=== PATIENT | female | born 1960 | race Caucasian/White ===

== ENCOUNTER 2018-08-17 13:25 | Inpatient (IN) | payer BC ==
[~2018-08-17] VITALS: Ht 162.6 cm; Wt 84.0 kg
--- NOTE | 2018-08-17 13:58 | NUR ---
PT FROM [place], HERE FOR [facility] [place] TREATMENT WITH DR. TOVAR. PT WAS AT HER APPT AND THE STAFF FOUND HER TO BE 82% ON RA AND 88% AFTER 5L OF O2. [facility] WAS CALLED, PT BROUGHT IN ON 15L NRB AND WITH AN OX SAT OF 94%. PT HAS A R CHEST PORT AND A DOUBLE LUMEN PICC IN [facility]. PT IS WEARING A 100 MCG FENTYNAL PATCH THAT SHE CAME IN WITH. PT APPEARS VERY FRAILE AND WEAK. PT GETS SOB FROM TALKING AND HAS TO TAKE A BREATH BETWEEN WORDS. FAMILY AT BEDSIDE. VS CURRENTLY STABLE. U/S AT BEDSIDE. ROUNDED AND DISCUSSED POC WITH FT AND FAMILY.
[2018-08-17] MEDS ORDERED: SODIUM CHLORIDE FLUSH 10ML SYR IVF ONE (14:00)
--- NOTE | 2018-08-17 14:08 | NUR ---
CALL LIGHT IN REACH. FAMILY EDUCATED ABOUT HOW TO USE THE STAFF EMERGENCY BUTTON.
[2018-08-17 14:16] LABS: MEAN CORPUSCULAR HEMOGLOBIN 28.8 pg (27.0-34.8); MEAN CORPUSCULAR HGB CONC 32.1 g/dL (32.4-35.8); MEAN CORPUSCULAR VOLUME 89.7 fL (80-100); MEAN PLATELET VOLUME 8.1 fL (7.4-10.4); PLATELET COUNT 131 x10^3/uL (130-400); RED BLOOD COUNT 3.66 x10^6/uL (3.82-5.3); RED CELL DISTRIBUTION WIDTH 17.3 % (9.6-15.2)
[2018-08-17 14:27] LABS: ALANINE AMINOTRANSFERASE 31 U/L (12-78); ALBUMIN 1.9 g/dL (3.4-5.0); ANION GAP 6 mmol/L (5-15); CALCIUM 9.2 mg/dL (8.5-10.1); CHLORIDE 117 mmol/L (98-107)
--- NOTE | 2018-08-17 14:27 | NUR ---
PT REPORTS PAIN. WILL NOTIFY MD. PT ON SERIAL VS.
[2018-08-17 14:31] LABS: ALKALINE PHOSPHATASE 164 U/L (45-117); BILIRUBIN,TOTAL 1.1 mg/dL (0.2-1.0); CREATININE 0.82 mg/dL (0.55-1.02); TOTAL PROTEIN 6.2 g/dL (6.4-8.2); TROPONIN I < 0.015 ng/mL (0.000-0.045)
[2018-08-17] MEDS ORDERED: ONDANSETRON 2MG/ML, 2ML ONE (14:37)
[2018-08-17] MEDS ORDERED: HYDROmorphone 1 MG/ML, 1ML VIAL ONE ×2 (14:37→17:12)
[2018-08-17] MEDS ORDERED: HYDROmorphone 1 MG/ML, 1ML INJ IV ONE (15:00)
[2018-08-17] MEDS ORDERED: ONDANSETRON 2MG/ML, 2ML IVPush ONE (15:00)
[2018-08-17] MEDS ORDERED: PLEASE ENTER ALLERGIES MC SCH (15:00)
[2018-08-17] MEDS ORDERED: HYDROmorphone 2 MG/ML, 1ML IV ONE (15:00)
[2018-08-17 15:27] LABS: MD YES
[2018-08-17 15:34] LABS: BAND#(MANUAL) 0.68 x10^3/uL; BANDS%(MANUAL) 5 % (0-7); LYMPH#(MANUAL) 0.68 x10^3/uL (1-3.4); LYMPHS% (MANUAL) 5 % (22-44); METAMYELOCYTES# (MANUAL) 0.14 x10^3/uL (0-0); METAMYELOCYTES% (MANUAL) 1 % (0-1); MONOS#(MANUAL) 0.54 x10^3/uL (0.3-2.7); MONOS% (MANUAL) 4 % (2-9); MYELOCYTES# (MANUAL) 0.14 x10^3/uL (0-0); MYELOCYTES% (MANUAL) 1 % (0-0); NRBC % (MANUAL) 3 % (0-1); SEG#(MANUAL) 11.42 x10^3/uL (1.8-6.8); SEGS% (MANUAL) 84 % (42-75)
[2018-08-17 15:36] LABS: HYPOCHROMIA 1+; OVALOCYTES 1+; POLYCHROMASIA 1+; TEAR DROPS 1+
[2018-08-17 15:37] LABS: <PLATELET ESTIMATE> ADEQUATE; <PLT MORPHOLOGY> NORMAL PLT MORPH; MICROCYTOSIS 1+
[2018-08-17 15:38] LABS: TOXIC GRAN 1+
[2018-08-17] MEDS ORDERED: OMNIPAQUE 350 MG/ML, 100ML BOTTLE ONE (15:42)
[2018-08-17] MEDS ORDERED: LORazepam 2 MG/ML, 1ML ONE (15:42)
[2018-08-17] MEDS ORDERED: LORazepam 2 MG/ML, 1ML IVPush ONE (16:00)
--- NOTE | 2018-08-17 16:16 | NUR ---
MD AT BEDSIDE DISCUSSING END OF LIFE CARE AND MEDICAL TREATMENT OPTIONS. MD PRESENTS RISKS, BENEFITS, AND POSSIBLE OUTCOMES OF DIFFERENT TREATMENT OPTIONS. FAMILY AT BEDSIDE, AND THEY HAVE NOT MADE A DECISION REGARDING POC.
--- NOTE | 2018-08-17 16:30 | NUR ---
INGA AT BEDSIDE DISCUSSING POC WITH FAMILY. PROVIDERS ARE EXPLAINING THE PROCESS OF ENTUBATION, WELL RISKS AND EXPECTED OUTCOMES. ENTUBATION CART AND EQUIPMENT WAS SET UP, THEN FAMILY DECIDED NOT TO PROCEED WITH ENTUBATION. FAMILY HAS VERBALIZED THAT THEY DO NOT WANT ANY LIFE-SAVING MEASURES PERFORMED. FAMILY HAS STATED, "WE JUST WANT HER TO BE COMFORTABLE".
--- NOTE | 2018-08-17 16:44 | NUR ---
TASK RN: THIS RN TO BEDSIDE TO ASSIST IN INTUBATION. ERP AND HOSPITALIST [facility] AT BEDSIDE TO DISCUSS POC WITH FAMILY. PER FAMILY, WILL NOT INTUBATE AT THIS TIME. PT REMAINS ON NRB. REPORT TO PRIMARY RN, ELBA.
[2018-08-17] MEDS ORDERED: SODIUM CHLORIDE 0.9% 1,000 ML IV SCH (16:47)
--- NOTE | 2018-08-17 16:50 | NUR ---
TASK RN: PER [facility] HOSPITALIST PT IS A DNR/DNI. POC IS COMFORT CARE. APPROPRIATE CHEMO SHARPS RECEPTICAL/SIGNS PROVIDED BY HOUSE SUP AND ARE TO BE PLACED BY PRIMARY RN.
[2018-08-17] MEDS ORDERED: KETOROLAC 30 MG/1 ML IV PRN (17:00)
[2018-08-17] MEDS ORDERED: ONDANSETRON 2MG/ML, 2ML IVPush PRN (17:00)
[2018-08-17] MEDS ORDERED: HYDROmorphone 2 MG/ML, 1ML IVPush PRN (17:00)
--- NOTE | 2018-08-17 17:05 | NUR ---
DAUGHTER AT BEDSIDE, DENIES NEEDS. PAIN MEDICATION OFFERED. DAUGHTER IS "GOING TO THINK ABOUT IT".
[2018-08-17] MEDS ORDERED: PIPERACILLIN/TAZO/PMX 3.375GM 50 ML ONE (17:12)
--- NOTE | 2018-08-17 17:24 | NUR ---
DAUGHTER REQUESTED THAT WE GIVE PAIN MEDICATION. RISK VS BENEFIT EXPLAINED TO DAUGHTER AND SHE VERBALIZED UNDERSTANDING. PT MEDICATED.
[2018-08-17 17:25] VITALS: BP 116/73
[2018-08-17] MEDS: PIPERACILLIN/TAZO/PMX 3.375GM 50 ML IV SCH ×3 (17:28→23:40)
[2018-08-17] MEDS ORDERED: FENT-58 EXT (20:43)
[2018-08-17] MEDS ORDERED: MORP1SYR2 PO (20:47)
[2018-08-17] MEDS ORDERED: ONDA8TAB9 PO (20:47)
[2018-08-17] MEDS ORDERED: SCOP1PAT11 TD (20:50)
[2018-08-17] MEDS ORDERED: LORazepam 1MG TABLET PO PRN (21:30)
[2018-08-17] MEDS: LORazepam 2 MG/ML, 1ML IVPush PRN ×2 (21:51→23:36)
[2018-08-17] MEDS ORDERED: FUROSEMIDE 20 MG/2 ML IV ONE (23:00)
[2018-08-17] MEDS ORDERED: MORPHINE SULFATE 4 MG/ML, 1ML ONE (23:46)
[2018-08-18] MEDS ORDERED: morphine SULFATE 10 MG/ML, 1ML IVPush ONE
[2018-08-18] MEDS ORDERED: SUCCINYLCHOLINE 20 MG/ML, 10ML ONE
[2018-08-18] MEDS ORDERED: MORPHINE SULFATE 4 MG/ML, 1ML IVPush PRN
[2018-08-18] MEDS ORDERED: ETOMIDATE 40 MG/20 ML ONE
== END 2018-08-18 03:52 | disposition expired | DRG 871 ==
LOC: ED 17:02 → 3NE 17:07 → ED 19:10 → 3NW 19:40
PROVIDERS: ADMIT Internal Medicine; ATTEND Internal Medicine
DX: A41.9 Sepsis, unspecified organism (principal); E43 Unspecified severe protein-calorie malnutrition; J18.9 Pneumonia, unspecified organism; J96.01 Acute respiratory failure with hypoxia; C25.9 Malignant neoplasm of pancreas, unspecified; C78.6 Secondary malignant neoplasm of retroperitoneum and peritoneum; C78.7 Secondary malignant neoplasm of liver and intrahepatic bile duct; E87.0 Hyperosmolality and hypernatremia; N13.30 Unspecified hydronephrosis; R18.8 Other ascites; D64.9 Anemia, unspecified; E78.00 Pure hypercholesterolemia, unspecified; E86.0 Dehydration; I10 Essential (primary) hypertension; J31.0 Chronic rhinitis; K20.9 Esophagitis, unspecified; K22.8 Other specified diseases of esophagus; N32.0 Bladder-neck obstruction; R65.20 Severe sepsis without septic shock; Z51.5 Encounter for palliative care; Z66 Do not resuscitate; E66.9 Obesity, unspecified; Z68.31 Body mass index [BMI] 31.0-31.9, adult
CPT/HCPCS: 36415; 71045; 71275; 74177; 80053; 83605; 83880; 84145; 84484; 85025; 87040; 87077; 87186; 93005; 96374; 96375; 96376; 99285; G0378; J1170; J1885; J2405; J2543; Q9967; J0330; J1940; J2060; J2270